=== PATIENT | male | born 1995 | race Caucasian/White ===

== ENCOUNTER 2018-04-05 10:14 | Emergency (ER) | payer OTHER, BC ==
[~2018-04-05] VITALS: Ht 180.3 cm; Wt 83.9 kg
== END 2018-04-05 11:38 | disposition home or self-care (01) ==
LOC: ED 10:14
DX: S43.402A Unspecified sprain of left shoulder joint, initial encounter (principal); X50.9XXA Other and unspecified overexertion or strenuous movements or postures, initial encounter; Z87.891 Personal history of nicotine dependence; Z88.8 Allergy status to other drugs, medicaments and biological substances
CPT/HCPCS: 73030; 99283